=== PATIENT | female | born 1940 | race Caucasian/White ===

== ENCOUNTER 2017-07-30 10:04 | Outpatient (CLI) | payer MEDICARE ==
--- NOTE | 2017-07-31 11:13 | HP ---
DATE OF SERVICE: 07/30/2017 HISTORY OF PRESENT ILLNESS: Ms. Moraima Alas is a very pleasant 77-year-old accompanied by her husba nd who presents to the [facility] for evaluation of an ulceration of the right anterior lower leg. The patient states that she fell and hit her right anterior lower leg against the metal portion of t he desk on 06/07/2017. The patient states that for repair of the wound, 21 interrupted sutures were placed in the Emergency Department. The patient states that she returned to the [facility] approximately 2 weeks ago. The patient states that she was seen by Dr. James on 07/24/2017 a nd at this time, referred to the Wound Center for further evaluation and treatment. PAST MEDICAL HISTORY: 1. Hypertension. 2. Coronary artery disease. PAST SURGICAL HISTORY: 1. Hysterectomy. 2. Appendectomy. 3. Back surgery. 4. Cholecystectomy. 5. Shoulder surgery. MEDICATIONS: 1. Omeprazole. 2. Lisinopril. 3. Vytorin. 4. Imdur. 5. Hydrochlorothiazide. 6. Lasix. 7. Coreg. 8. Vitamin D3. 9. Multivitamin. 10. Biotin. 11. Vitamin E. ALLERGIES: CODEINE. SOCIAL HISTORY: Social history is negative for tobacco or ETOH use. FAMILY HISTORY: Family history is negative for diabetes mellitus or coronary artery disease. PHYSICAL EXAMINATION: VITAL SIGNS: Temperature 97.6, pulse 61, respirations 18, blood pressure 134/63. GENERAL: A 77-year-old female sitting on table in examination room, in no acute distress. HEENT: Normocephalic, atraumatic. NECK: No nuchal rigidity. CHEST: Clear to auscultation. CARDIAC: Regular rate and rhythm. ABDOMEN: Soft. EXTREMITIES: An ulceration of the right anterior lower leg is present, which measures approximately 2.0 x 1.4 cm. Granulation tissue is present within the wound margins. Necrotic and nonviable tissue present within the wound margins was debrided with an excisional full-thickness debridement with the use of scissors. No purulent drainage is associated with the wound. No erythema of the skin surrou nding the wound is present. No maceration of the skin of the periwound is noted. A posterior tibial pulse is palpable on the right. Mild to moderate edema of the right foot and lower leg is present o n exam today. NEUROLOGIC: Grossly nonfocal. ASSESSMENT AND PLAN: 1. Varicose veins of right lower extremity with ulcer. Silverlon, Webril, and the 3M Coban two-laye r compression system will be applied to the ulceration today. No antibiotics will be prescribed base d upon the appearance of the wound. I will see Ms. Alas again in one week. The patient has been i nstructed to keep the dressings applied in clinic today clean and dry until her followup visit in 1 w la posta. The patient understands and is in agreement with the preceding treatment plan. 2. Hypertension. 3. Coronary artery disease.
== END 2017-07-30 10:05 | disposition home or self-care (01) ==
LOC: WCC 10:04
PROVIDERS: ATTEND Family Medicine
DX: I83.019 Varicose veins of right lower extremity with ulcer of unspecified site (principal); L97.919 Non-pressure chronic ulcer of unspecified part of right lower leg with unspecified severity; I25.10 Atherosclerotic heart disease of native coronary artery without angina pectoris; I10 Essential (primary) hypertension; Z90.710 Acquired absence of both cervix and uterus; Z90.89 Acquired absence of other organs

== ENCOUNTER 2017-08-06 08:22 | Outpatient (CLI) | payer MEDICARE ==
--- NOTE | 2017-08-06 09:36 | PRG ---
DATE OF SERVICE: 08/06/2017 HISTORY: Ms. Moraima Alas is a very pleasant 77-year-old, accompanied by her , who presents t o the [facility] Center for evaluation of an ulceration of the right anterior lower leg. The patient prev iously stated that she fell and hit her right anterior lower leg against the metal portion of a desk on 06/07/2017. The patient stated that for repair of the wound 21 interrupted sutures were placed in the emergency department. The patient stated that she returned to the [facility] proximately 2 weeks prior to her initial presentation to the Wound Center. The patient stated that s he was seen by Dr. James on 07/24/2017, and at this time, referred to the Wound Center for further e valuation and treatment. After being seen in the Wound Center, Silverlon, Webril, and the 3M Coban 2 -layer compression system were applied to the ulceration. PHYSICAL EXAMINATION: VITAL SIGNS: Temperature 97.9, pulse 60, respirations 17, blood pressure 114/56. EXTREMITIES: An ulceration of the right anterior lower leg is present, which measures approximately 2.0 x 1.4 cm. Granulation tissue is present within the wound margins. Necrotic and nonviable tissue present within the wound margins was debrided with an excisional full-thickness debridement with the use of a curette. No purulent drainage is associated with the wound. No erythema of the skin surro unding the wound is present. No maceration of the skin of the periwound is noted. A posterior tibia l pulse is easily palpable on the right. No significant edema of the right foot or lower leg is pres ent on exam today. ASSESSMENT AND PLAN: 1. Varicose veins of right lower extremity with ulcer. Silverlon, Webril, and the 3M Coban 2-layer compression system will be applied to the ulceration again today. I will see Ms. Alas again in 1 w cahto. 2. Hypertension. 3. Coronary artery disease.
[2017-08-06] MEDS ORDERED: Sodium Chloride 0.9% 15 ML NEB ONE (11:11)
== END 2017-08-06 08:23 | disposition home or self-care (01) ==
LOC: WCC 08:22
PROVIDERS: ATTEND Family Medicine
DX: I83.019 Varicose veins of right lower extremity with ulcer of unspecified site (principal); L97.919 Non-pressure chronic ulcer of unspecified part of right lower leg with unspecified severity; I10 Essential (primary) hypertension; I25.10 Atherosclerotic heart disease of native coronary artery without angina pectoris
CPT/HCPCS: 11042; A4218

== ENCOUNTER 2017-08-13 08:24 | Outpatient (CLI) | payer MEDICARE ==
--- NOTE | 2017-08-13 09:41 | PRG ---
DATE OF SERVICE: 08/13/2017 HISTORY: Ms. Moraima Alas is a very pleasant 77-year-old accompanied by her who presents to the [facility] Center for evaluation of an ulceration of the right anterior lower leg. The patient previously stated that she fell and hit her right anterior lower leg against a metal portion of a desk on 2016. The patient stated that for repair of the wound 21 interrupted sutures were placed in the Emergency Department. The patient stated that she returned to the [facility] approximately 2 weeks prior to her initial presentation to the Wound Center. The patient stated that she was seen by Dr. James on 07/24/2017 and at this time referred to the Wound Center for further evaluation and treatment. After being seen in the Wound Center, Silverlon, Webril, and the 3M Coban 2-layer compression system were applied to the ulceration. The patient has been receiving the preceding dressing changes on a weekly basis. PHYSICAL EXAMINATION: VITAL SIGNS: Temperature 98.2, pulse 59, respirations 18, blood pressure 100/ 55. EXTREMITIES: An ulceration of the right anterior lower leg is present which measures approximately 1.3 x 1.0 cm. The dimensions of the wound at the time of the patient's last visit were approximately 2.0 x 1.4 cm. Granulation tissue is present within the wound margins. Necrotic and nonviable tissue present within the wound margins was debrided with an excisional full-thickness debridement. No purulent drainage is associated with the wound. No erythema of the skin surrounding the wound is present. No maceration of the skin of the periwound is noted. A dorsalis pedis pulse and a posterior tibial pulse are easily palpable on the right. No significant edema of the right foot or lower leg is present on exam today. ASSESSMENT AND PLAN: 1. Varicose veins of right lower extremity with ulcer. Promogran, Silverlon, Webril, and the 3M Coban two-layer compression system will be applied to the ulceration. I will see Ms. Alas again in 1 week. 2. Hypertension. 3. Coronary artery disease. MTDD
== END 2017-08-13 08:25 | disposition home or self-care (01) ==
LOC: WCC 08:24
PROVIDERS: ATTEND Family Medicine
DX: I83.019 Varicose veins of right lower extremity with ulcer of unspecified site (principal); I10 Essential (primary) hypertension; I25.10 Atherosclerotic heart disease of native coronary artery without angina pectoris
CPT/HCPCS: 11042

== ENCOUNTER 2017-08-20 08:27 | Outpatient (CLI) | payer MEDICARE ==
--- NOTE | 2017-08-20 09:09 | PRG ---
DATE OF SERVICE: 08/20/2017 HISTORY: Ms. Moraima Alas is a very pleasant 77-year-old accompanied by her who presen ts to the Wound Center for evaluation of an ulceration of the right anterior lower leg. The patient previously stated that she fell and hit her right anterior lower leg against a metal portion of a tonja k on 06/07/2017. The patient stated that for repair of the wound, 21 interrupted sutures were placed in the Emergency Department. The patient stated that she returned to the [facility] approximately 2 weeks prior to her initial presentation to the Wound Center. The patient stated arianna t she was seen by Dr. James on 07/24/2017 and at this time referred to the Wound Center for further evaluation and treatment. After being seen in the Wound Center, Silverlon, Webril, and 3M Coban 2 la faby compression system were applied to the ulceration. Later, Promogran was added to the patient's r egimen. The patient has been receiving the preceding dressing changes on a weekly basis. PHYSICAL EXAMINATION: VITAL SIGNS: Temperature 98.0, pulse 61, respirations 18, blood pressure 92/53. EXTREMITIES: An ulceration of the right anterior lower leg is present which measures approximately 1 .0 x 0.8 cm. The dimensions of the wound at the time of the patient's last visit were approximately 1.3 x 1.0 cm. Granulation tissue is present within the wound margins. Necrotic and nonviable tissue present within the wound margins was debrided with an excisional full-thickness debridement with the use of a curette and scissors. No purulent drainage is associated with the wound. No erythema of t he skin surrounding the wound is present. No maceration of the skin of the periwound is noted. A do rsalis pedis pulse and posterior tibial pulse are easily palpable on the right. No significant edema of the right foot or lower leg is present on exam today. ASSESSMENT AND PLAN: 1. Varicose veins of right lower extremity with ulcer. Promogran, Silverlon, Webril, and the 3M Cob an 2-layer compression system will be applied to the ulceration today. The patient has been instruct ed to discontinue the compression wrap applied in clinic today in 7-10 days. At this time, if the wo und is still present, she is to begin dressing changes of Promogran and Silverlon bordered gauze on a daily basis or alternatively three times per week after cleansing and irrigation. The patient is to perform the preceding dressing changes in conjunction with the use of her compression garment. The patient has been instructed to apply the garment each morning and remove the garment at night. Ms. Andres muñoz will be discharged from clinic today with followup on a p.r.n. basis. 2. Hypertension. 3. Coronary artery disease.
[2017-08-20] MEDS ORDERED: Lidocaine 2% Jelly 5 ML TUBE ONE (10:00)
[2017-08-20] MEDS ORDERED: Sodium Chloride 0.9% 15 ML NEB ONE (10:00)
== END 2017-08-20 08:28 | disposition home or self-care (01) ==
LOC: WCC 08:27
PROVIDERS: ATTEND Family Medicine
DX: I83.018 Varicose veins of right lower extremity with ulcer other part of lower leg (principal); I25.10 Atherosclerotic heart disease of native coronary artery without angina pectoris; I10 Essential (primary) hypertension
CPT/HCPCS: 11042; A4218

== ENCOUNTER 2018-10-23 19:30 | Outpatient (CLI) | payer MEDICARE | END 2018-10-23 19:31 | disposition home or self-care (01) | LOC: SLEEPLAB 19:30 | PROVIDERS: ATTEND Psychiatry & Neurology Neurology | DX: G47.9 Sleep disorder, unspecified (principal); R06.81 Apnea, not elsewhere classified; R53.83 Other fatigue; I10 Essential (primary) hypertension; G31.84 Mild cognitive impairment of uncertain or unknown etiology; F02.80 Dementia in other diseases classified elsewhere, unspecified severity, without behavioral disturbance, psychotic disturbance, mood disturbance, and anxiety; G47.33 Obstructive sleep apnea (adult) (pediatric) | CPT/HCPCS: 95811 ==

== ENCOUNTER 2023-04-02 13:03 | Outpatient (CLI) | payer OTHER | END 2023-04-02 13:04 | disposition home or self-care (01) | LOC: EEG 13:03 | PROVIDERS: ATTEND Psychiatry & Neurology Neurology | DX: R41.89 Other symptoms and signs involving cognitive functions and awareness (principal) | CPT/HCPCS: 95816 ==